=== PATIENT | male | born 2005 | race Caucasian/White ===

== ENCOUNTER 2024-05-12 21:07 | Emergency (ER) | payer OTHER, SELFPAY ==
[2024-05-12 21:08] VITALS: BP 169/84; PULSE 108; RESP 18; TEMP 36; O2SAT 97; BMI 28.1
[2024-05-12 21:24] LABS: Mucous, Urine 0 SEEN /hpf (<or=2+); Red Blood Cells-Urine 0 SEEN /hpf (0-5); Squamous Epithelial Cells - UA 0 SEEN /hpf (0-5)
[2024-05-12 21:34] LABS: Color, Urine Yellow (Yellow); Glucose, Dipstick Normal (Normal); Ketone-Dipstick Negative (Negative); Leukocyte Esterase-Dipstick Negative /ul (Negative); Nitrite-Dipstick Negative (Negative); Occult Blood-Urine Negative /ul (Negative); Protein-Dipstick 15 mg/dl (Negative); Urine Bilirubin Dipstick Negative (Negative); Urine Clarity Clear (Clear); Urine Urobilinogen Normal (Normal); Urine pH 6.5 (5.0 - 8.0)
[2024-05-12 21:34] LABS: Absolute Lymphocyte Count 2.55 X10^3/uL (0.83-4.51); Absolute Neutrophil Count 5.6 X10^3/uL (2.0-7.7); Basophil# 0.09 X10^3/uL; Eosinophil# 0.16 X10^3/uL; Eosinophils% 1.7 % (0-5); Hematocrit 49.5 % (40-54); Lymphocyte # 2.55 X10^3/ul (0.83-4.51); Lymphocyte % 27.9 % (19-41); Mean Corp Hgb Conc 36.6 g/dL (32-36); Mean Corpuscular Hgb 29.3 pg (27.0-32.0); Mean Corpuscular Volume 80.1 fL (80-94); Mean Platelet Vol. 10.2 fl (6.2-12.0); Monocyte% 7.7 % (0-10); NRBC Flagged by Analyzer 0 % (0-5); Neutrophil # 5.63 X10^3/uL (2.7-7.7); Neutrophil % 61.5 % (47-70); Platelet Count 296 K/mm3 (150-450); RBC Distribution Width CV 11.9 % (11.6-14.6); RBC Distribution Width SD 33.8 fl (35.1-43.9); Red Blood Count 6.18 M/mm3 (4.6-6.2); White Blood Count 9.2 K/mm3 (4.4-11.0)
[2024-05-12 21:45] LABS: Bacteria RARE /hpf (None Seen); White Blood Cells 0-5 SEEN /hpf (0-5)
[2024-05-12 21:50] LABS: ALB/GLOB Ratio 1.3 RATIO (0.9-2.4); AST(SGOT) 33 U/L (15-37); Alanine Aminotransfer ALT/SGPT 64 U/L (16-61); Albumin, Serum 4.3 g/dL (3.2-5.0); Alkaline Phosphatase 91 U/L (45-117); Anion Gap 7 (5-15); BUN 17 mg/dL (7-18); BUN/Creat Ratio 16.3 RATIO (10-20); Calcium,Total 9.1 mg/dL (8.5-10.1); Chloride 105 mmol/L (98-107); Creatinine, Serum 1.04 mg/dL (0.70-1.30); EST Glomerular Filtration Rate 96 mL/min (>60); Est Glom Filt Rate - Afr Amer 116 mL/min (>60); Estimated Creatinine Clearance 123.49 ml/min; Globulin 3.4 g/dL (2.2-4.2); Glucose 125 mg/dL (74-106); Protein, Total 7.7 g/dL (6.4-8.2); Sodium Level 140 mmol/L (136-145)
[2024-05-12 22:28] LABS: Hemoglobin 18.1 g/dL (13.0-16.5)
--- NOTE | 2024-05-12 22:59 | CT_ITS ---
STUDY: CT ABDOMEN AND PELVIS WITH CONTRAST REASON FOR EXAM: Male, 18 years old. Right lower quadrant pain. Nausea and abd pain after eating x 3 weeks RADIATION DOSAGE (If Supplied By Facility): CTDIvol = ( 12.13 ) mGy, DLP = ( 925.003 ) mGycm TECHNIQUE: Transaxial images were obtained from the dome of the diaphragm to the symphysis pubis without oral contrast. ml of 100mL Isovue-370 contrast was administered. Sagittal and coronal images were reconstructed. Individualized dose optimization techniques were used for this CT. COMPARISON: None. FINDINGS: The visualized lung bases are unremarkable. The visualized portions of the heart are within normal limits. Normal liver. Normal gallbladder and extrahepatic biliary system. There is mild splenomegaly. Normal splenic parenchyma. Normal pancreas. Normal bilateral adrenal glands. Normal right kidney. Normal left kidney. No demonstrated hydronephrosis or renal masses or cysts. No visualized radiopaque renal stones. No CT evidence of pyelonephritis demonstrated. No perinephric stranding is present. No free air or free fluid or bowel dilatation is seen. No abnormal bowel wall thickening is present. Normal visualized stomach. Normal small intestine. Normal colon. The appendix is visualized and appears normal. Normal abdominal aorta. Normal inferior vena cava. There is borderline retroperitoneal lymphadenopathy with enlarged nodes no greater than 10mm in the short axis diameter. Normal urinary bladder. Normal abdominal wall. Normal osseous structures. CT/Abdomen/Pelvis W IV Cont ONLY IMPRESSION: 1. Mild splenomegaly. 2. No demonstrated hydronephrosis or renal masses or cysts. No visualized radiopaque renal stones. No CT evidence of pyelonephritis demonstrated. No perinephric stranding is present. No free air or free fluid or bowel dilatation is seen. No abnormal bowel wall thickening is present. Electronically Signed: Gregory Moore MD at 23:40 EST Reading Location ID and State: [id number] / [place] , Service support ,
--- NOTE | 2024-05-12 23:00 | ED.VIS.GI ---
HPI HPI - GI History of Present Illness Chief Complaint: Abd Pain Narrative Narrative: 18-year-old male presents with abdominal pain. He states has had it intermittently for 3 weeks. This evening, he had upper abdominal pain, almost like gas pains. States his aunt had him drink baking soda and water, and he belched, and he felt mildly improved. Still remains nauseated now is having right lower quadrant pain. He states going over the bumps in the car driving here made his pain worse. He denies any recent fevers or chills. He is nauseated but has not vomited. No real problems with bowel movements. Past medical history does include ADHD but he does not take medications any longer. He takes Pepcid however because the medications used to make him vomit. He presents because of right lower quadrant abdominal pain. No prior abdominal surgeries. [facility] Medical History (Updated 05/13/24 @ 00:04 by Tomi Cobos MD) Acid reflux Home Medications ?Medication ?Instructions ?Recorded ?Last Taken ?Type famotidine 20 mg tablet (Acid 20 mg PO DAILY 05/12/24 Unknown History Controller) Allergy/AdvReac Type Severity Reaction Status Date / Time No Known Allergies Allergy Verified 05/12/24 21:08 Social History Smoking Status: Never smoker ROS ROS ED ROS Narrative Constitutional: No fever, no chills. HEENT: No sore throat. No neck pain. No loss of vision. No rhinorrhea. Cardiovascular: No chest pain. No palpitations. No pedal edema. Respiratory: No cough, no shortness of breath. Abdominal: Diffuse abdominal pain. First was in the upper part of the abdomen, now in lower quadrants, right greater than left. Positive nausea. No vomiting. Genitourinary: No dysuria. No hematuria. Musculoskeletal: No myalgias. No arthralgias. Neurologic: No headaches. No dizziness. No lightheadedness. Skin: No rash. No change in color. Psychiatric: No depression. No anxiety. EXAM Physical Exam Narrative Exam Narrative: Afebrile. Vital signs noted. Nontoxic-appearing. Cardiovascular semination of is a regular rate and rhythm. Lungs are clear to auscultation bilaterally. Abdomen soft with mild tenderness to palpation of the right lower quadrant. No guarding or rebound, negative Mcnulty sign. Positive bowel sounds. Neurological examination nonfocal and nonlateralizing. Const Vital Signs: 05/12/24 21:08 05/12/24 23:08 Temperature 96.8 F L Temperature Source Oral Pulse Rate 108 H 80 Respiratory Rate 18 18 Blood Pressure 169/84 H 136/77 H Blood Pressure Mean 112 96 Pulse Ox 97 Oxygen Delivery Method Room Air MDM MDM MDM Narrative Medical decision making narrative: Differential diagnosis includes but not limited to acute appendicitis versus colitis versus diverticulitis versus nonspecific abdominal pain. I have low suspicion for any urological pathology because the history and physical does not support this. I reviewed his laboratory work that was obtained per protocol. He has normal white count 9.2. Hemoglobin hemoconcentrated at 18.1. Platelet count normal at 296. CMP shows glucose of 125 with normal anion gap of 7. ALT slightly elevated at 64 which I also think is nonspecific. Alk phos normal at 91. Urinalysis obtained and reviewed and is negative for infection. I do not feel antibiotics are indicated. I will add a lipase to help rule out pancreatitis. Given his right lower quadrant pain however, I do feel that CT imaging is indicated. I reviewed the radiology report of the CT of the abdomen and pelvis. There is no acute process. Appendix was visualized and appears normal. Repeat examination shows him resting comfortably and he states he feels improved. Lipase normal at 69. At this point in time I feel he can be discharged to follow-up with a primary care provider. Return instructions to the emergency department were reviewed. Patient motivated for discharge. Disposition is discharged home in stable condition. History & Record Review Discussion w/independent historian: Patient and Family Lab Data Attestation: I reviewed the patient's lab results. Labs: Laboratory Results - last 24 hr 05/12/24 05/12/24 21:20 21:25 WBC 9.2 RBC 6.18 Hgb 18.1 H* Hct 49.5 MCV 80.1 MCH 29.3 MCHC 36.6 H RDW Std Deviation 33.8 L RDW Coeff of Caitlin 11.9 Plt Count 296 MPV 10.2 Immature Gran % (Auto) 0.200 Neut % (Auto) 61.5 Lymph % (Auto) 27.9 Gibson % (Auto) 7.7 Eos % (Auto) 1.7 Baso % (Auto) 1.0 Absolute Neuts (auto) 5.6 Absolute Lymphs (auto) 2.55 Nucleated RBC % 0 Sodium 140 Potassium 4.0 Chloride 105 Carbon Dioxide 28.0 Anion Gap 7 BUN 17 Creatinine 1.04 Estim Creat Clear Calc 123.49 Est GFR (MDRD) Af Amer 116 Est GFR (MDRD) Non-Af 96 BUN/Creatinine Ratio 16.3 Glucose 125 H Calcium 9.1 Total Bilirubin 0.40 AST 33 ALT 64 H Alkaline Phosphatase 91 Total Protein 7.7 Albumin 4.3 Globulin 3.4 Albumin/Globulin Ratio 1.3 Lipase 69 Urine Color Yellow Urine Clarity Clear Urine pH 6.5 Ur Specific Allison 1.020 Urine Protein 15 H Urine Glucose (UA) Normal Urine Ketones Negative Urine Occult Blood Negative Urine Nitrite Negative Urine Bilirubin Negative Urine Urobilinogen Normal Ur Leukocyte Esterase Negative Urine RBC 0 SEEN Urine WBC 0-5 SEEN Ur Squamous Epith Cells 0 SEEN Urine Bacteria RARE Urine Mucus 0 SEEN Radiography Diagnostic Testing: Clinical Impression(s) from Imaging Studies Abdomen/Pelvis CT 05/12/24 22:59 IMPRESSION: 1. Mild splenomegaly. 2. No demonstrated hydronephrosis or renal masses or cysts. No visualized radiopaque renal stones. No CT evidence of pyelonephritis demonstrated. No perinephric stranding is present. No free air or free fluid or bowel dilatation is seen. No abnormal bowel wall thickening is present. Electronically Signed: Gregory Moore MD at 23:40 EST Reading Location ID and State: [address] [place] [address] , Service support , Discharge Plan Triage Chief Complaint: Abd Pain ED Provider: Tomi Cobos Dx/Rx/DC Orders Clinical Impression: Abdominal pain, Nausea Instructions: ED Abdominal Pain Unkn Cause Male... Prescriptions: No Action famotidine [Acid Controller] 20 mg tablet 20 mg PO DAILY Primary Care Provider: Care Physician,No Primary Referrals: Noé Perez MD [Med Staff - Active Staff] - 1 Week if not improving Care Physician,No Primary [Primary Care Provider] - Activity Restrictions/Additional Instructions: Return to the emergency department with fever, new or worsening symptoms. Follow-up with primary care. Print Language: Eritrean Disposition Disposition: Home, Self Care
[2024-05-12 23:08] VITALS: BP 136/77; PULSE 80; RESP 18
[2024-05-12 23:40] LABS: Lipase 69 U/L (13-75)
== END 2024-05-13 00:19 | disposition home or self-care (01) ==
PROVIDERS: Emergency Provider Emergency Medicine; Visit Provider Emergency Medicine
DX: R10.31 Right lower quadrant pain (principal); R11.0 Nausea; F90.9 Attention-deficit hyperactivity disorder, unspecified type
CPT/HCPCS: 74177; 80053; 81001; 83690; 85025; 99283; Q9967; A4216